=== PATIENT | female | born 1990 | race Two or more races ===

== ENCOUNTER 2017-02-01 18:14 | Emergency (ER) | payer OTHER ==
[~2017-02-01] VITALS: Ht 167.6 cm; Wt 87.5 kg
[2017-02-01 18:18] VITALS: BP 108/73
[2017-02-01] MEDS ORDERED: PREN-58 PO (18:32)
== END 2017-02-01 20:01 | disposition home or self-care (01) ==
LOC: ER 18:16
DX: O26.93 Pregnancy related conditions, unspecified, third trimester (principal); R10.84 Generalized abdominal pain; Z3A.35 35 weeks gestation of pregnancy
CPT/HCPCS: 76805; 99284; A4606; Z7610